=== PATIENT | female | born 1930 | race American Indian/Alaskan Native ===

== ENCOUNTER 2018-09-07 12:40 | Inpatient (IN) | payer MEDICARE ==
[2018-09-07] MEDS ORDERED: PEPCID IV ONE (12:49)
[2018-09-07] MEDS ORDERED: SOLU-Medrol IV ONE (12:49)
[2018-09-07] MEDS ORDERED: BENADRYL IM ONE (12:49)
--- NOTE | 2018-09-07 13:01 | Emergency Department Report ---
HPI - General Chief Complaint: Allergic Reaction Time Seen by Provider: 09/07/18 12:48 - HPI HPI: Room 2 The patient is an 87-year-old female presenting with chief complaint tongue swelling. I spoke with staff at [facility] states the patient last known well time was last night. Sometime during last night and this morning at 08:00 the patient was found to have a swollen tongue. Staff states the patient was found to have an elevated INR yesterday with an INR 5.96. The patient was administered vitamin K subcutaneous and this morning INR was found to be 5.87. Patient denies complaints stating she feels pretty good. Patient denies shortness of breath Location: [See above] Duration: [See above] Quality: [See above] Severity: [See above] Modifying factors: [see above] Context: [see above] Mode of transportation: [not driving] ED Past Medical Hx - Past Medical History Hx Diabetes: Yes Hx Arthritis: Yes Additional medical history: Pharyngeal CA, A. fib, hyperlipidemia, sciatica, hypercholesterolemia - Surgical History Past Surgical History?: No - Family History Family history: no significant - Social History Smoking Status: Unknown if ever smoked - Medications Home Medications: Home Medications Medication Instructions Recorded Confirmed Last Taken Type AtorvaSTATin [Lipitor] 40 mg PO QHS 09/07/18 09/07/18 Unknown History Digoxin [Lanoxin] 0.125 mg PO DAILY 09/07/18 09/07/18 Unknown History Furosemide [Lasix TAB] 40 mg PO QDAY 09/07/18 09/07/18 Unknown History Insulin Aspart [Novolog] 0 unit SQ AC 09/07/18 09/07/18 Unknown History Insulin Glargine,Hum.rec.anlog 10 unit SQ QHS 09/07/18 09/07/18 Unknown History [Basaglar Kwikpen U-100] Metoprolol [Lopressor] 25 mg PO Q6H 09/07/18 09/07/18 Unknown History Sennosides/Docusate Sodium [Senna 1 each PO DAILY 09/07/18 09/07/18 Unknown History Plus Tablet] Warfarin [Coumadin] 5 mg PO QDAY 09/07/18 09/07/18 Unknown History ED Review of Systems ROS: Stated complaint: SOB Other details as noted in HPI Comment: Unobtainable due to pts medical conditions Physical Exam - Physical Exam Physical Exam: GENERAL: The patient is well-developed well-nourished female sitting on stretcher with obvious tongue swelling but not appearing to be in acute distress. [] HEENT: Normocephalic. Atraumatic. Extraocular motions are intact. Tongue swelling, remainder of oropharynx clear NECK: Supple. No stridor CHEST/LUNGS: Clear to auscultation. There is no respiratory distress noted. HEART/CARDIOVASCULAR: Irregularly irregular. There is no tachycardia. There is no gallop rub or murmur. ABDOMEN: Abdomen is soft, nontender. Patient has normal bowel sounds. There is no abdominal distention. SKIN: There is no rash. There is no edema. There is no diaphoresis. NEURO: The patient is awake and alert. The patient is cooperative. The patient has normal speech MUSCULOSKELETAL: There is no evidence of acute injury. ED Medical Decision Making - Lab Data Result diagrams: 09/07/18 14:15 09/07/18 14:15 Laboratory Tests 09/07/18 09/07/18 09/07/18 14:15 14:15 14:15 WBC 10.1 RBC 3.08 L Hgb 9.9 L Hct 29.9 L MCV 97 MCH 32 MCHC 33 RDW 24.9 H Plt Count 362 Lymph % (Auto) 6.6 L [place] % (Auto) 3.8 Eos % (Auto) 0.2 Baso % (Auto) 0.2 Lymph # 0.7 L [place] # 0.4 Eos # 0.0 Baso # 0.0 Seg Neutrophils % 89.2 H Seg Neutrophils # 9.0 H PT 45.8 H INR 5.00 H Sodium 143 Potassium 4.5 Chloride 104.2 Carbon Dioxide 28 Anion Gap 15 BUN 28 H Creatinine 0.5 L Estimated GFR > 60 BUN/Creatinine Ratio 56 Glucose 331 H Calcium 9.3 Total Bilirubin 0.50 AST 30 ALT 25 Alkaline Phosphatase 160 H Total Protein 8.8 H Albumin 2.1 L Albumin/Globulin Ratio 0.3 - EKG Data -: EKG Interpreted by Me Rate: tachycardia - EKG Data Interpretation: nonspecific ST-T wave zack, other (patient fibrillation with a rapid ventricular response of 170 bpm) - Radiology Data Radiology results: image reviewed (lateral soft tissue neck x-ray) interpreted by me: Lateral soft tissue neck x-ray-no prevertebral swelling. - Differential Diagnosis angioedema, allergic reaction, Critical care attestation.: If time is entered above; I have spent that time in minutes in the direct care of this critically ill patient, excluding procedure time. ED Disposition Clinical Impression: Angioedema, Atrial fibrillation with rapid ventricular response, Diarrhea Disposition: OP ADMIT IP TO THIS HOSP Is pt being admited?: Yes Does the pt Need Aspirin: No Condition: Fair Time of Disposition: 15:09 (hospitalist paged (Dr Neely))
[2018-09-07] MEDS ORDERED: CARDIZEM IV ONE (13:47)
[2018-09-07] MEDS ORDERED: CARDIZEM/D5W 100MG/100ML 100 MG/100 ML BAG IV ONE (13:48)
[2018-09-07] MEDS ORDERED: CARDIZEM ONE (13:51)
[2018-09-07 14:35] LABS: Basophils % (Auto) 0.2 % (0.0-1.8); Eosinophils % (Auto) 0.2 % (0.0-4.3); Hematocrit 29.9 % (30.3-42.9); Hemoglobin 9.9 gm/dl (10.1-14.3); Lymphocytes # (Auto) 0.7 K/mm3 (1.2-5.4); Lymphocytes % (Auto) 6.6 % (13.4-35.0); Mean Corpuscular HGB Conc 33 % (30-34); Mean Corpuscular Volume 97 fl (79-97); Monocytes # (Auto) 0.4 K/mm3 (0.0-0.8); Monocytes % (Auto) 3.8 % (0.0-7.3); Platelet Count 362 K/mm3 (140-440); Red Blood Count 3.08 M/mm3 (3.65-5.03); Red Cell Distribution Width 24.9 % (13.2-15.2)
[2018-09-07 14:55] LABS: Alanine Aminotransferase 25 units/L (7-56); Albumin 2.1 g/dL (3.9-5); BUN/Creatinine Ratio 56; Blood Urea Nitrogen 28 mg/dL (7-17); Calcium 9.3 mg/dL (8.4-10.2); Hemolysis Index 13
[2018-09-07 15:15] LABS: Partial Thromboplastin Time 62.1 Sec. (24.2-36.6)
--- NOTE | 2018-09-07 15:45 | History and Physical Report ---
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 Pt is unable to provide detailed histo ry due to tongue swelling. Pt history is provided by family who is at bedside during exam and interview. As per family, the patient was in her usual state of health around 2000 hrs. Pt was found by SNF staff to have a swollen tongue upon waking this morning and was unable to take her daily medication. routine lab showed and elevated INR to 5.87. EMS notified, and patient was transported to [facility]. Pt seen and evaluated in ED and found to have Atrial Fib with RVR, Supratherapeutic INR, and Angioedema. Pt admitted to ICU and initiated on cardizem drip. Pt has positive gag reflex and is able to protect her airway. Pt family at bedside and the care plan is discussed with family. Pt is not in need of intubation at this time. Pt family informed that intubation may become necessary if patient develops greater risk of airway compromise. No prior admission for review. All listed medication reconciled at time of admission. Extra 35 minutes spent discussing care plan with family Past History Past Medical History: atrial fib, diabetes, hypertension, hyperlipidemia, other (Sciatica,Debility) Past Surgical History: Other (Peg placement) Social history: . denies: smoking, alcohol abuse, prescription drug abuse Medications and Allergies Allergies Allergy/AdvReac Type Severity Reaction Status Date / Time olmesartan [From Benicar] Allergy Unknown Verified 09/07/18 14:09 Penicillins Allergy Unknown Verified 09/07/18 12:53 Sulfa (Sulfonamide Allergy Vomiting Verified 09/07/18 12:53 Antibiotics) Home Medications Medication Instructions Recorded Confirmed Last Taken Type AtorvaSTATin [Lipitor] 40 mg PO QHS 09/07/18 09/07/18 Unknown History Digoxin [Lanoxin] 0.125 mg PO DAILY 09/07/18 09/07/18 Unknown History Furosemide [Lasix TAB] 40 mg PO QDAY 09/07/18 09/07/18 Unknown History Insulin Aspart [Novolog] 0 unit SQ AC 09/07/18 09/07/18 Unknown History Insulin Glargine,Hum.rec.anlog 10 unit SQ QHS 09/07/18 09/07/18 Unknown History [Basaglar Kwikpen U-100] Metoprolol [Lopressor] 25 mg PO Q6H 09/07/18 09/07/18 Unknown History Sennosides/Docusate Sodium [Senna 1 each PO DAILY 09/07/18 09/07/18 Unknown History Plus Tablet] Warfarin [Coumadin] 5 mg PO QDAY 09/07/18 09/07/18 Unknown History Active Meds: Active Medications Diltiazem HCl (Cardizem/D5w 100mg/100ml) 100 mg in 100 mls @ 5 mls/hr IV TITR ONE; Protocol Stop: 09/08/18 09:47 Last Admin: 09/07/18 14:57 Dose: 5 mg/hr, 5 mls/hr Documented by: Review of Systems ROS unobtainable: due to mental status Exam - Constitutional Vitals: Temp Pulse Resp BP Pulse Ox 97.7 F 128 H 26 H 169/74 96 09/07/18 12:46 09/07/18 15:01 09/07/18 15:01 09/07/18 15:01 09/07/18 15:01 General appearance: Present: mild distress, cachectic - EENT Eyes: Present: PERRL ENT: hearing intact, clear oral mucosa - Neck Neck: Present: supple, normal ROM - Respiratory Respiratory effort: normal Respiratory: bilateral: CTA - Cardiovascular Heart Sounds: Present: S1 & S2. Absent: rub, click - Extremities Extremities: pulses symmetrical, No edema Peripheral Pulses: within normal limits - Abdominal General gastrointestinal: Present: soft, non-tender, non-distended, normal bowel sounds Female genitourinary: Present: normal - Integumentary Integumentary: Present: clear, warm, dry - Psychiatric Psychiatric: no memory intact - Neurologic Neurologic: CNII-XII intact, moves all extremities, no gait normal Results - Labs CBC & Chem 7: 09/07/18 14:15 09/07/18 14:15 Labs: Abnormal lab results 09/07/18 09/07/18 09/07/18 Range/Units 14:15 14:15 14:15 RBC 3.08 L (3.65-5.03) M/mm3 Hgb 9.9 L (10.1-14.3) gm/dl Hct 29.9 L (30.3-42.9) % RDW 24.9 H (13.2-15.2) % Lymph % (Auto) 6.6 L (13.4-35.0) % Lymph # 0.7 L (1.2-5.4) K/mm3 Seg Neutrophils % 89.2 H (40.0-70.0) % Seg Neutrophils # 9.0 H (1.8-7.7) K/mm3 PT 45.8 H (12.2-14.9) Sec. INR 5.00 H (0.87-1.13) APTT 62.1 H* (24.2-36.6) Sec. BUN 28 H (7-17) mg/dL Creatinine 0.5 L (0.7-1.2) mg/dL Glucose 331 H (65-100) mg/dL Alkaline Phosphatase 160 H (35-129) units/L Total Protein 8.8 H (6.3-8.2) g/dL Albumin 2.1 L (3.9-5) g/dL Assessment and Plan - Patient Problems (1) Atrial fibrillation with rapid ventricular response Current Visit: Yes Status: Acute Plan to address problem: Cardizem drip, titrate to heart rate less than 100, hold therapeutic anticoagulation at this time due to elevated INR. The high probability of a clinically significant, sudden or life threatening deterioration of the [cardiac,respiratory] system(s) required my full and direct attention, intervention and personal management. The aggregate critical care time was [65] minutes. This time is in addition to time spent performing reported procedures but includes the following: [x] Data Review and interpretation [x] Patient assessment and monitoring of vital signs [x] Documentation [x] Medication orders and management (2) Angioedema Current Visit: Yes Status: Acute Qualifiers: Encounter type: initial encounter Qualified Code(s): T78.3XXA - Angioneurotic edema, initial encounter Plan to address problem: IV steroid therapy, aspiration precautions, neuro check, supportive care, if no improvement in symptoms CT Neck in AM. (3) Debility Current Visit: Yes Status: Acute Plan to address problem: Fall precautions, supportive care, (4) Severe malnutrition Current Visit: Yes Status: Acute Plan to address problem: Encourage increased protein intake, PEG tube in place. dietary supplementation (5) Supratherapeutic INR Current Visit: Yes Status: Acute Plan to address problem: Hold coumadin therapy, Pharmacy consulted, (6) Oral cancer Current Visit: Yes Status: Acute Plan to address problem: Oral cancer complicated by dysphagia, Supportive care, Pain control:POA (7) Diabetes Current Visit: Yes Status: Acute Plan to address problem: ADA diet, insulin, accu check, hypoglycemia protocol (8) Osteoarthritis Current Visit: Yes Status: Acute Qualifiers: Laterality: unspecified laterality Plan to address problem: Pain control, supportive care: POA (9) DVT prophylaxis Current Visit: Yes Status: Acute Plan to address problem: SCD to BLE while in bed, INR supratherapeutic at this time.
[2018-09-07] MEDS ORDERED: SODIUM CHLORIDE FLUSH SYRINGE 10 ML IV PRN (15:53)
[2018-09-07] MEDS ORDERED: PROVENTIL IH PRN (15:53)
[2018-09-07] MEDS ORDERED: LOPRESSOR PO SCH (16:00)
[2018-09-07] MEDS ORDERED: TYLENOL ONE (16:45)
--- NOTE | 2018-09-07 16:45 | XRay Report ---
PROCEDURE: XR NECK SOFT TISSUE TECHNIQUE: Soft tissue neck 2 views HISTORY: angioedema COMPARISONS: FINDINGS: Prevertebral soft tissues are unremarkable. No evidence for pharyngeal distention. The epiglottis is not clearly visualized. Upper trachea demonstrates unremarkable appearance. No radiopaque foreign bod y or soft tissue gas appreciated. Multilevel degenerative disc changes noted cervical spine. IMPRESSION: Negative soft tissue neck This document is electronically signed by Contreras Dunne MD., September 07 2018 04:43:47 PM ET
[2018-09-07] MEDS ORDERED: TYLENOL PO ONE (16:48)
[2018-09-07] MEDS: LOPRESSOR FEEDTUBE SCH (17:00)
[2018-09-07] MEDS ORDERED: INSULIN GLARGINE HUM REC ANLOG 10 UNIT SQ SCH (22:00)
[2018-09-07] MEDS: SOLU-Medrol IV SCH (22:01)
[2018-09-07] MEDS: SODIUM CHLORIDE FLUSH SYRINGE 10 ML IV SCH (22:01)
[2018-09-07] MEDS: LANTUS SUB-Q SCH (22:34)
[2018-09-07] MEDS ORDERED: D50W (25GM) Syringe IV PRN (23:21)
[2018-09-08] MEDS: LOPRESSOR FEEDTUBE SCH ×5 (01:43→23:17)
[2018-09-08] MEDS: HumaLOG SUB-Q SCH ×6 (01:43→23:30)
[2018-09-08] MEDS ORDERED: CARDIZEM/D5W 100MG/100ML 100 MG/100 ML BAG IV SCH (06:00)
--- NOTE | 2018-09-08 07:52 | Consultation ---
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 Pt is unable to provide detailed history due to tongue swelling. Pt history is provided by family who is at bedside during exam and interview. As per family, the patient was in her usual state of health around 2000 hrs. Pt was found by SNF staff to have a swollen tongue upon waking this morning and was unable to take her daily medication. routine lab showed and elevated INR to 5.87. EMS notified, and patient was transported to [facility]. Pt seen and evaluated in ED and found to have Atrial Fib with RVR, Supratherapeutic INR, and Angioedema. Pt admitted to ICU and initiated on cardizem drip. Pt has positive gag reflex and is able to protect her airway. She has been admitted to the ICU and I have been consulted fro critical care management. History documented above per ED staff. She was seen and examined. Vitals,labs, medications, chart and imaging reviewed. She is unable to give me a history. She is currently on 5mg of cardizem infusion, with a HR 70s. Past History Past Medical History: atrial fib, diabetes, hypertension, hyperlipidemia, other (Sciatica,Debility) Past Surgical History: Other (Peg placement) Social history: . denies: smoking, alcohol abuse, prescription drug abuse Medications and Allergies Allergies Allergy/AdvReac Type Severity Reaction Status Date / Time olmesartan [From Benicar] Allergy Unknown Verified 09/07/18 14:09 Penicillins Allergy Unknown Verified 09/07/18 12:53 Sulfa (Sulfonamide Allergy Vomiting Verified 09/07/18 12:53 Antibiotics) Home Medications Medication Instructions Recorded Confirmed Last Taken Type AtorvaSTATin [Lipitor] 40 mg PO QHS 09/07/18 09/07/18 Unknown History Digoxin [Lanoxin] 0.125 mg PO DAILY 09/07/18 09/07/18 Unknown History Furosemide [Lasix TAB] 40 mg PO QDAY 09/07/18 09/07/18 Unknown History Insulin Aspart [Novolog] 0 unit SQ AC 09/07/18 09/07/18 Unknown History Insulin Glargine,Hum.rec.anlog 10 unit SQ QHS 09/07/18 09/07/18 Unknown History [Katherine Starr U-100] Metoprolol [Lopressor] 25 mg PO Q6H 09/07/18 09/07/18 Unknown History Sennosides/Docusate Sodium [Senna 1 each PO DAILY 09/07/18 09/07/18 Unknown History Plus Tablet] Warfarin [Coumadin] 5 mg PO QDAY 09/07/18 09/07/18 Unknown History Active Meds: Active Medications Albuterol (Proventil) 2.5 mg IH Q3HRT PRN PRN Reason: Shortness Of Breath Atorvastatin Calcium (Lipitor) 40 mg PO QHS [facility] Last Admin: 09/07/18 22:01 Dose: 40 mg Documented by: Dextrose (D50w (25gm) Syringe) 50 ml IV PRN PRN PRN Reason: Hypoglycemia Digoxin (Lanoxin) 0.125 mg PO DAILY KENNEDI Furosemide (Lasix) 40 mg PO QDAY KENNEDI Diltiazem HCl (Cardizem/D5w 100mg/100ml) 100 mg in 100 mls @ 5 mls/hr IV TITR ONE; Protocol Stop: 09/08/18 09:47 Last Titration: 09/08/18 02:50 Dose: Infused Documented by: Diltiazem HCl (Cardizem/D5w 100mg/100ml) 100 mg in 100 mls @ 0 mls/hr IV DIRECT KENNEDI Insulin Glargine (Lantus) 10 units SUB-Q QHS [facility] Last Admin: 09/07/18 22:34 Dose: 10 units Documented by: Insulin Human Lispro (Humalog) 0 unit SUB-Q Q6HR [facility]; Protocol Last Admin: 09/08/18 01:43 Dose: 9 unit Documented by: Methylprednisolone Sodium Succinate (Solu-Medrol) 40 mg IV Q12HR [facility] Last Admin: 09/07/18 22:01 Dose: 40 mg Documented by: Metoprolol Tartrate (Lopressor) 25 mg FEEDTUBE Q6HR [facility] Last Admin: 09/08/18 05:34 Dose: 25 mg Documented by: Senna/Docusate Sodium (Senokot S) 1 tab PO DAILY [facility] Sodium Chloride (Sodium Chloride Flush Syringe 10 Ml) 10 ml IV BID [facility] Last Admin: 09/07/18 22:01 Dose: 10 ml Documented by: Sodium Chloride (Sodium Chloride Flush Syringe 10 Ml) 10 ml IV PRN PRN PRN Reason: LINE FLUSH Warfarin Sodium (Coumadin) 5 mg PO QDAY KENNEDI; Protocol Review of Systems ROS unobtainable: due to mental status Physical Examination Vital signs: Vital Signs Temp Pulse Resp BP Pulse Ox 97.7 F 76 16 129/62 100 09/07/18 12:46 09/07/18 12:46 09/07/18 12:46 09/07/18 12:46 09/07/18 12:46 General appearance: Present: mild distress, cachectic - EENT Eyes: Present: PERRL - Neck Neck: Present: supple, normal ROM,no JVD, no adenopathy - Respiratory Respiratory effort: normal Respiratory: bilateral: CTA - Cardiovascular Heart Sounds: Present: S1 & S2. Absent: rub, click - Extremities Extremities: pulses symmetrical, No edema Peripheral Pulses: within normal limits - Abdominal General gastrointestinal: Present: soft, non-tender, non-distended, normal bowel sounds Female genitourinary: Present: normal - Integumentary Integumentary: Present: clear, warm, dry - Psychiatric Psychiatric: unable to adequately assess - Neurologic Neurologic: moves all extremities, awake, alert, not obeying commands Results - Laboratory Findings CBC and BMP: 09/07/18 14:15 09/07/18 14:15 PT/INR, D-dimer PT 45.8 Sec. (12.2-14.9) H 09/07/18 14:15 INR 5.00 (0.87-1.13) H 09/07/18 14:15 Abnormal lab findings: Abnormal Labs 09/07/18 09/07/18 09/07/18 14:15 14:15 14:15 RBC 3.08 L Hgb 9.9 L Hct 29.9 L RDW 24.9 H Lymph % (Auto) 6.6 L Lymph # 0.7 L Seg Neutrophils % 89.2 H Seg Neutrophils # 9.0 H PT 45.8 H INR 5.00 H APTT 62.1 H* BUN 28 H Creatinine 0.5 L Glucose 331 H POC Glucose Alkaline Phosphatase 160 H Total Protein 8.8 H Albumin 2.1 L 09/07/18 09/08/1819 22:13 01:36 05:13 RBC Hgb Hct RDW Lymph % (Auto) Lymph # Seg Neutrophils % Seg Neutrophils # PT INR APTT BUN Creatinine Glucose POC Glucose 457 H 494 H 252 H Alkaline Phosphatase Total Protein Albumin Assessment and Plan Atrial fibrillation with rapid ventricular response Angioedema Oropharyngeal dysphagia Moderate protein calorie malnutrition Supratherapeutic INR/Coumadin toxicity Oral cancer Diabetes Osteoarthritis -Close ICU monitoring of airway- -Stop cardizem infusion, resume metoprolol per tube -Aspiration precautions -Steroids, Benadryl, famotidine -Tube feeding -Accucheck with glycemic control -Target blood glucose <180 mg/dL -Monitor for bleeding complications -Daily PT/INR -Mobility, PT/OT to evaluate and treat -Monitor hemodynamics closely -Nutrition consult -Once INR is at 2.0, resume coumadin while monitoring PT/INR CONDITION: CRITICAL PROGNOSIS: GUARDED CODE STATUS: FULL CODE The high probability of a clinically significant, sudden or life threatening deterioration of the [cardiac,respiratory] system(s) required my full and direct attention, intervention and personal management. The aggregate critical care time was [35] minutes. This time is in addition to time spent performing reported procedures but includes the following: [x] Data Review and interpretation [x] Patient assessment and monitoring of vital signs [x] Documentation [x] Medication orders and management
[2018-09-08] MEDS ORDERED: COUMADIN PO SCH (10:00)
[2018-09-08] MEDS: SOLU-Medrol IV SCH ×2 (10:31→22:40)
[2018-09-08] MEDS: LASIX PO SCH (10:31)
[2018-09-08] MEDS: LANOXIN PO SCH (10:34)
[2018-09-08] MEDS: SENOKOT S PO SCH (10:35)
[2018-09-08] MEDS: SODIUM CHLORIDE FLUSH SYRINGE 10 ML IV SCH (10:37)
[2018-09-08] MEDS ORDERED: SODIUM BICARBONATE FEEDTUBE PRN (13:50)
[2018-09-08] MEDS ORDERED: SIMPLE SYRUP FEEDTUBE PRN ×2 (13:50)
[2018-09-08] MEDS ORDERED: PANCREAZE DR 10,500 UNIT FEEDTUBE PRN (13:50)
--- NOTE | 2018-09-08 14:37 | Progress Note ---
Assessment and Plan Assessment and plan: Afib with RVR. Cardizem drip, titrate to heart rate less than 100, hold therapeutic anticoagulation at this time due to elevated INR. Angioedema. IV steroid therapy, aspiration precautions, neuro check, supportive care, if no improvement in symptoms CT Neck in AM. Debility. Fall precautions Protein calorie malnutrition. Encourage increased protein intake, PEG tube in place. dietary supplementation Supratherapeutic INR. Hold coumadin therapy accordingly, Pharmacy consulted DM II. Accuchecks and SSRI. Hx of Oral Cancer. Supportive care History Interval history: 87 YO Female [facility] Facility Resident at [facility] wit h Atrial Fib, HLD, Sciatica, Pharyngeal Cancer, Debility, Severe Malnutrition,DM, OA with tongue swelling. Hospitalist Physical - Constitutional Vitals: Temp Pulse Resp BP Pulse Ox 97.7 F 73 15 119/47 100 09/08/18 12:00 09/08/18 07:00 09/08/18 07:00 09/08/18 07:00 09/08/18 07:00 General appearance: Present: mild distress, cachectic - EENT Eyes: Present: PERRL, EOM intact ENT: hearing intact, clear oral mucosa, dentition normal - Neck Neck: Present: supple, normal ROM - Respiratory Respiratory effort: normal Respiratory: bilateral: CTA - Cardiovascular Rhythm: regular Heart Sounds: Present: S1 & S2. Absent: gallop, rub - Extremities Extremities: no ischemia, No edema, Full ROM - Abdominal General gastrointestinal: soft, non-tender, non-distended, normal bowel sounds - Integumentary Integumentary: Present: clear, warm, dry - Neurologic Neurologic: CNII-XII intact, moves all extremities Results - Labs CBC & Chem 7: 09/07/18 14:15 09/07/18 14:15 Labs: Laboratory Last Values WBC 10.1 K/mm3 (4.5-11.0) 09/07/18 14:15 RBC 3.08 M/mm3 (3.65-5.03) L 09/07/18 14:15 Hgb 9.9 gm/dl (10.1-14.3) L 09/07/18 14:15 Hct 29.9 % (30.3-42.9) L 09/07/18 14:15 MCV 97 fl (79-97) 09/07/18 14:15 MCH 32 pg (28-32) 09/07/18 14:15 MCHC 33 % (30-34) 09/07/18 14:15 RDW 24.9 % (13.2-15.2) H 09/07/18 14:15 Plt Count 362 K/mm3 (140-440) 09/07/18 14:15 Lymph % (Auto) 6.6 % (13.4-35.0) L 09/07/18 14:15 [place] % (Auto) 3.8 % (0.0-7.3) 09/07/18 14:15 Eos % (Auto) 0.2 % (0.0-4.3) 09/07/18 14:15 Baso % (Auto) 0.2 % (0.0-1.8) 09/07/18 14:15 Lymph # 0.7 K/mm3 (1.2-5.4) L 09/07/18 14:15 [place] # 0.4 K/mm3 (0.0-0.8) 09/07/18 14:15 Eos # 0.0 K/mm3 (0.0-0.4) 09/07/18 14:15 Baso # 0.0 K/mm3 (0.0-0.1) 09/07/18 14:15 Seg Neutrophils % 89.2 % (40.0-70.0) H 09/07/18 14:15 Seg Neutrophils # 9.0 K/mm3 (1.8-7.7) H 09/07/18 14:15 PT 45.8 Sec. (12.2-14.9) H 09/07/18 14:15 INR 5.00 (0.87-1.13) H 09/07/18 14:15 APTT 62.1 Sec. (24.2-36.6) H* 09/07/18 14:15 Sodium 143 mmol/L (137-145) 09/07/18 14:15 Potassium 4.5 mmol/L (3.6-5.0) 09/07/18 14:15 Chloride 104.2 mmol/L (98-107) 09/07/18 14:15 Carbon Dioxide 28 mmol/L (22-30) 09/07/18 14:15 15 mmol/L 09/07/18 14:15 BUN 28 mg/dL (7-17) H 09/07/18 14:15 0.5 mg/dL (0.7-1.2) L 09/07/18 14:15 Estimated GFR > 60 ml/min 09/07/18 14:15 56 % 09/07/18 14:15 Glucose 331 mg/dL (65-100) H 09/07/18 14:15 POC Glucose 329 (70-105) H 09/08/18 12:49 Calcium 9.3 mg/dL (8.4-10.2) 09/07/18 14:15 0.50 mg/dL (0.1-1.2) 09/07/18 14:15 AST 30 units/L (5-40) 09/07/18 14:15 ALT 25 units/L (7-56) 09/07/18 14:15 160 units/L (35-129) H 09/07/18 14:15 8.8 g/dL (6.3-8.2) H 09/07/18 14:15 2.1 g/dL (3.9-5) L 09/07/18 14:15 0.3 % 09/07/18 14:15 Active Medications - Current Medications Current Medications: Generic Name Dose Route Start Last Admin Trade Name Freq PRN Reason Stop Dose Admin Albuterol 2.5 mg 09/07/18 15:53 Proventil IH Q3HRT PRN Shortness Of Breath Lipase/Protease/Amylase 1 each 09/08/18 13:[address] 10,500 Unit FEEDTUBE PRN PRN For Clogged Feeding Tube Atorvastatin Calcium 40 mg 09/07/18 22:00 09/07/18 22:01 Lipitor PO 40 mg QHS KENNEDI Administration Dextrose 50 ml 09/07/18 23:21 D50w (25gm) Syringe IV PRN PRN Hypoglycemia Digoxin 0.125 mg 09/08/18 10:00 Lanoxin PO DAILY KENNEDI Furosemide 40 mg 09/08/18 10:00 Lasix PO QDAY [facility] Diltiazem HCl 100 mg in 100 mls @ 0 mls/hr 09/08/18 06:00 Cardizem/D5w 100mg/100ml IV DIRECT [facility] Insulin Glargine 10 units 09/07/18 22:00 09/07/18 22:34 Lantus SUB-Q 10 units QHS KENNEDI Administration Insulin Human Lispro 0 unit 09/08/18 00:00 09/08/18 01:43 Humalog SUB-Q 9 unit Q6HR KENNEDI Administration Protocol Methylprednisolone Sodium Succinate 40 mg 09/07/18 22:00 09/07/18 22:01 Solu-Medrol IV 40 mg Q12HR KENNEDI Administration Metoprolol Tartrate 25 mg 09/07/18 18:00 09/08/18 05:34 Lopressor FEEDTUBE 25 mg Q6HR KENNEDI Administration Senna/Docusate Sodium 1 tab 09/08/18 10:00 Senokot S PO DAILY KENNEDI Simple Syrup 15 ml 09/08/18 13:50 Simple Syrup FEEDTUBE PRN PRN Hypoglycemia Simple Syrup 30 ml 09/08/18 13:50 Simple Syrup FEEDTUBE PRN PRN Hypoglycemia Sodium Bicarbonate 325 mg 09/08/18 13:50 Sodium Bicarbonate FEEDTUBE PRN PRN For Clogged Feeding Tube Sodium Chloride 10 ml 09/07/18 22:00 09/07/18 22:01 Sodium Chloride Flush Syringe 10 Ml IV 10 ml BID KENNEDI Administration Sodium Chloride 10 ml 09/07/18 15:53 Sodium Chloride Flush Syringe 10 Ml IV PRN PRN LINE FLUSH Warfarin Sodium 5 mg 09/09/18 17:00 Coumadin PO DAILY@1700 [facility] Nutrition/Malnutrition Assess - Dietary Evaluation Nutrition/Malnutrition Findings: Nutrition Notes Start: 09/08/18 10:10 Freq: Status: Active Protocol: Document 09/08/18 10:10 JENNIFER (Rec: 09/08/18 10:23 JENNIFER [email or web address]) Nutrition Notes Need for Assessment generated from: MD Order,classified ad taker,Education Initial or Follow up Assessment Current Diagnosis Diabetes,Malnutrition, Hyperlipidemia Other Pertinent Diagnosis afib with RVR, angioedema, Debility, Pharyngeal CA Current Diet NPO Labs/Tests POC Glu: 494, 252 Pertinent Medications Lasix, Solumedrol, Senna, Coumadin Height 5 ft 7 in Weight 52.4 kg [place] Body Weight (kg) 61.36 BMI 18.1 Weight Status Underweight Subjective/Other Information RD consulted for diet education; pt not appropriate for diet education at this time. Pt also screened for chewing difficulty and hx of receiving NTR support (she is from a [place] and has a PEG tube). Pt admitted with a swollen tongue. Per RN, pt will need EN support; will place consult to RD. Burn Absent Trauma Absent #1 Nutrition Diagnosis Malnutrition Etiology chronic illness, advanced age As Evidenced by Signs and Symptoms pt underweight (BMI 18.1) with reduced hand nascar racer strength and relies on EN support to meet nutrient needs Is patient on ventilator? No Is Patient Ambulatory and/or Out of Bed No REE-([facility]-confined to bed) 1203.576 Kcal/Kg value to use for calculation 30 Approximate Energy Requirements Using 1572 kcal/Kg Calculation Used for Recommendations Kcal/kg Additional Notes Pro needs 1.2-2g/k-105g/ day Fluid needs 1ml/kcal Nutrition Intervention Nutrition Support: Glucerna 1.2 at 55ml/hr with 85ml water flush q4h (when TF consult received) Kcal 1,584 Protein (gm) 79 Carbohydrates (gm) 151 Fat (gm) 79 Fluid (mL) 1,063 Fiber (gm) 21 Goal #1 Start EN support to meet nutrient needs Goal #2 Wt maintenance and/or gain Anticipated Discharge Needs: Continue TF Follow-Up By: 09/10/18 Additional Comments F/U: TF start/tolerance
[2018-09-08] MEDS: LANTUS SUB-Q SCH (22:40)
[2018-09-09] MEDS ORDERED: NORCO 5/325 PO PRN (02:43)
[2018-09-09] MEDS ORDERED: TYLENOL PO PRN (02:48)
[2018-09-09 06:24] LABS: INR 6.1 (0.87-1.13)
[2018-09-09] MEDS: HumaLOG SUB-Q SCH ×3 (06:39→17:14)
[2018-09-09] MEDS: LOPRESSOR FEEDTUBE SCH ×3 (06:40→17:13)
--- NOTE | 2018-09-09 09:32 | Progress Note ---
Assessment and Plan Atrial fibrillation with rapid ventricular response Angioedema Oropharyngeal dysphagia Moderate protein calorie malnutrition Supratherapeutic INR/Coumadin toxicity Oral cancer Diabetes Osteoarthritis -Off cardizem infusion, on metoprolol per tube -Aspiration precautions -Steroids, Benadryl, famotidine -Tube feeding -Accucheck with glycemic control -Target blood glucose <180 mg/dL -Monitor for bleeding complications -Daily PT/INR -Mobility, PT/OT to evaluate and treat -Monitor hemodynamics closely -Nutrition consult -Once INR is at 2.0, resume coumadin while monitoring PT/INR CONDITION: FAIR PROGNOSIS: GUARDED CODE STATUS: FULL CODE Ok to transfer to telemetry unit. Discussed with ICU team on IDT rounds Subjective Date of service: 09/09/18 Interval history: Patient is seen today for: Atrial fibrillation with rapid ventricular response; Angioedema; Oropharyngeal dysphagia; Moderate protein calorie malnutrition; Supratherapeutic INR/Coumadin toxicity; Oral cancer; Diabetes; Osteoarthritis Seen and examined at bedside; 24hour events reviewed; vitals, labs, medications, chart reviewed; nursing and respiratory care staff consulted; no adverse overnight events reported to me; resting peacefully in bed; No N/V/F/C; denies acute chest pains; afebrile, off cardizem infusion Objective - Exam Narrative Exam: Not in cardiopulmonary distress. The patient appeared well nourished and normally developed. Vital signs as documented. Head exam is unremarkable. No scleral icterus . Neck is without jugular venous distension, thyromegaly, or carotid bruits. Lungs are clear to auscultation. Cardiac exam reveals irregular rate and Rhythm. First and second heart sounds normal. No murmurs, rubs or gallops. Abdominal exam reveals normal bowel sounds, no masses, no organomegaly and no aortic enlargement. Extremities are non edematous and both femoral and pedal pulses are normal. [employer]: Alert , awake, . Vital Signs - 12hr 09/08/18 09/08/18 09/08/18 21:40 21:50 22:00 Temperature Pulse Rate 110 H 109 H 113 H Pulse Rate [ From Monitor] Respiratory Rate Blood Pressure 137/45 138/55 138/55 O2 Sat by Pulse 97 98 96 Oximetry 09/08/18 09/08/18 09/08/18 22:10 22:20 22:30 Temperature Pulse Rate 117 H 124 H 102 H Pulse Rate [ From Monitor] Respiratory Rate Blood Pressure 138/55 132/68 132/68 O2 Sat by Pulse 100 100 100 Oximetry 09/08/18 09/08/18 09/08/18 22:40 22:47 22:50 Temperature Pulse Rate 130 H 120 H 122 H Pulse Rate [ From Monitor] Respiratory 22 Rate Blood Pressure 132/68 144/59 144/59 O2 Sat by Pulse 100 100 98 Oximetry 09/08/18 09/08/18 09/08/18 23:00 23:06 23:10 Temperature Pulse Rate 103 H 154 H 110 H Pulse Rate [ From Monitor] Respiratory 20 26 H 19 Rate Blood Pressure 142/85 142/85 144/59 O2 Sat by Pulse 100 96 97 Oximetry 09/08/18 09/08/18 09/08/18 23:17 23:20 23:30 Temperature Pulse Rate 109 H 111 H 115 H Pulse Rate [ From Monitor] Respiratory 22 19 Rate Blood Pressure 129/70 129/70 129/70 O2 Sat by Pulse 97 97 Oximetry 09/08/18 09/08/18 09/08/18 23:40 23:45 23:50 Temperature 97.9 F Pulse Rate 109 H 93 H Pulse Rate [ From Monitor] Respiratory 22 14 Rate Blood Pressure 131/54 140/96 O2 Sat by Pulse 95 99 Oximetry 09/08/18 09/09/18 09/09/18 23:51 00:00 00:10 Temperature 313 F H Pulse Rate 92 H 96 H Pulse Rate [ From Monitor] Respiratory 17 14 Rate Blood Pressure 140/96 145/58 O2 Sat by Pulse 98 97 Oximetry 09/09/18 09/09/18 09/09/18 00:20 00:30 00:40 Temperature Pulse Rate 97 H 95 H 119 H Pulse Rate [ From Monitor] Respiratory 14 13 14 Rate Blood Pressure 132/61 130/60 130/60 O2 Sat by Pulse 97 98 100 Oximetry 09/09/18 09/09/18 09/09/18 00:50 01:00 01:10 Temperature Pulse Rate 100 H 114 H 102 H Pulse Rate [ From Monitor] Respiratory 29 H 11 L 15 Rate Blood Pressure 140/70 123/80 123/80 O2 Sat by Pulse 100 100 97 Oximetry 09/09/18 09/09/18 09/09/18 01:20 01:30 01:40 Temperature Pulse Rate 107 H 107 H 96 H Pulse Rate [ From Monitor] Respiratory 26 H 26 H 16 Rate Blood Pressure 131/60 131/60 128/74 O2 Sat by Pulse 99 100 98 Oximetry 09/09/18 09/09/18 09/09/18 01:50 02:00 02:10 Temperature Pulse Rate 102 H 95 H 87 Pulse Rate [ From Monitor] Respiratory 17 19 19 Rate Blood Pressure 120/66 107/82 107/82 O2 Sat by Pulse 98 98 97 Oximetry 09/09/18 09/09/18 09/09/18 02:20 02:30 02:40 Temperature Pulse Rate 106 H 96 H 99 H Pulse Rate [ From Monitor] Respiratory 12 12 16 Rate Blood Pressure 117/75 117/75 111/66 O2 Sat by Pulse 95 98 92 Oximetry 09/09/18 09/09/18 09/09/18 02:50 03:00 03:10 Temperature Pulse Rate 99 H 109 H 101 H Pulse Rate [ From Monitor] Respiratory 20 35 H 24 Rate Blood Pressure 125/58 125/58 127/71 O2 Sat by Pulse 97 98 Oximetry 09/09/18 09/09/18 09/09/18 03:20 03:30 03:37 Temperature 97.8 F Pulse Rate 88 105 H Pulse Rate [ From Monitor] Respiratory 14 16 Rate Blood Pressure 122/67 138/57 O2 Sat by Pulse 96 94 Oximetry 09/09/18 09/09/18 09/09/18 03:40 03:50 04:00 Temperature Pulse Rate 101 H 93 H 91 H Pulse Rate [ From Monitor] Respiratory 14 13 12 Rate Blood Pressure 138/57 125/54 124/54 O2 Sat by Pulse 86 100 100 Oximetry 09/09/18 09/09/18 09/09/18 04:10 04:20 04:30 Temperature Pulse Rate 115 H 103 H 110 H Pulse Rate [ From Monitor] Respiratory 13 12 20 Rate Blood Pressure 124/54 130/46 130/46 O2 Sat by Pulse 100 100 98 Oximetry 09/09/18 09/09/18 09/09/18 04:40 04:50 05:00 Temperature Pulse Rate 99 H 99 H 101 H Pulse Rate [ From Monitor] Respiratory 12 13 13 Rate Blood Pressure 130/46 130/46 123/60 O2 Sat by Pulse 97 94 93 Oximetry 09/09/18 09/09/18 09/09/18 05:10 05:20 05:30 Temperature Pulse Rate 115 H 95 H 108 H Pulse Rate [ From Monitor] Respiratory 19 13 13 Rate Blood Pressure 123/60 136/52 129/56 O2 Sat by Pulse 89 97 97 Oximetry 09/09/18 09/09/18 09/09/18 05:40 05:50 06:00 Temperature Pulse Rate 100 H 104 H Pulse Rate [ From Monitor] Respiratory 12 12 Rate Blood Pressure 129/56 114/58 114/58 O2 Sat by Pulse 97 97 93 Oximetry 09/09/18 09/09/18 09/09/18 06:10 06:20 06:30 Temperature Pulse Rate 116 H 124 H 101 H Pulse Rate [ From Monitor] Respiratory 19 17 20 Rate Blood Pressure 118/95 118/95 118/95 O2 Sat by Pulse 97 100 93 Oximetry 09/09/18 09/09/18 09/09/18 06:40 06:50 07:00 Temperature Pulse Rate 111 H 118 H 121 H Pulse Rate [ From Monitor] Respiratory 19 18 19 Rate Blood Pressure 109/58 83/53 95/60 O2 Sat by Pulse 94 94 97 Oximetry 09/09/18 09/09/18 09/09/18 07:10 07:20 07:30 Temperature Pulse Rate 125 H 116 H 101 H Pulse Rate [ From Monitor] Respiratory 19 15 13 Rate Blood Pressure 142/95 118/49 119/52 O2 Sat by Pulse 95 96 93 Oximetry 09/09/18 09/09/18 09/09/18 07:40 07:50 07:51 Temperature Pulse Rate 115 H 96 H Pulse Rate [ From Monitor] Respiratory 14 14 Rate Blood Pressure 119/52 125/61 O2 Sat by Pulse 95 96 98 Oximetry 09/09/18 09/09/18 09/09/18 08:00 08:10 08:24 Temperature 97.5 F L Pulse Rate 133 H 112 H Pulse Rate [ 133 H From Monitor] Respiratory 13 15 13 Rate Blood Pressure 125/61 125/61 O2 Sat by Pulse 100 99 100 Oximetry CBC and BMP: 09/11/18 04:23 09/11/18 04:23 ABG, PT/INR, D-dimer: PT/INR, D-dimer PT 53.6 Sec. (12.2-14.9) H 09/09/18 04:07 INR 6.10 (0.87-1.13) H* 09/09/18 04:07 Abnormal lab findings: Abnormal Labs 09/07/18 09/07/18 09/07/18 14:15 14:15 14:15 RBC 3.08 L Hgb 9.9 L Hct 29.9 L RDW 24.9 H Lymph % (Auto) 6.6 L Lymph # 0.7 L Seg Neutrophils % 89.2 H Seg Neutrophils # 9.0 H PT 45.8 H INR 5.00 H APTT 62.1 H* BUN 28 H Creatinine 0.5 L Glucose 331 H POC Glucose Alkaline Phosphatase 160 H Total Protein 8.8 H Albumin 2.1 L 09/07/18 09/08/18 09/08/18 22:13 01:36 05:13 RBC Hgb Hct RDW Lymph % (Auto) Lymph # Seg Neutrophils % Seg Neutrophils # PT INR APTT BUN Creatinine Glucose POC Glucose 457 H 494 H 252 H Alkaline Phosphatase Total Protein Albumin 09/08/18 09/08/18 09/08/18 10:06 12:49 13:46 RBC Hgb Hct RDW Lymph % (Auto) Lymph # Seg Neutrophils % Seg Neutrophils # PT INR APTT BUN Creatinine Glucose POC Glucose 334 H 329 H 283 H Alkaline Phosphatase Total Protein Albumin 09/08/18 09/08/18 09/09/18 17:16 23:16 04:07 RBC Hgb Hct RDW Lymph % (Auto) Lymph # Seg Neutrophils % Seg Neutrophils # PT 53.6 H INR 6.10 H* APTT BUN Creatinine Glucose POC Glucose 291 H 313 H Alkaline Phosphatase Total Protein Albumin 09/09/18 05:23 RBC Hgb Hct RDW Lymph % (Auto) Lymph # Seg Neutrophils % Seg Neutrophils # PT INR APTT BUN Creatinine Glucose POC Glucose 282 H Alkaline Phosphatase Total Protein Albumin
[2018-09-09] MEDS: SOLU-Medrol IV SCH ×2 (10:39→22:43)
[2018-09-09] MEDS: LASIX PO SCH (10:39)
[2018-09-09] MEDS: SENOKOT S PO SCH (10:40)
[2018-09-09] MEDS: LANOXIN PO SCH (10:40)
[2018-09-09] MEDS: SODIUM CHLORIDE FLUSH SYRINGE 10 ML IV SCH ×3 (10:41→22:43)
[2018-09-09 12:14] LABS: INR 5.1 (0.87-1.13)
[2018-09-09] MEDS ORDERED: COUMADIN PO SCH (17:00)
--- NOTE | 2018-09-09 18:35 | Progress Note ---
Assessment and Plan Assessment and plan: Afib with RVR. Cardizem drip discontinued. Transfer to floor Angioedema. IV steroid therapy, aspiration precautions, negative neck plain films Debility. Fall precautions Protein calorie malnutrition. Encourage increased protein intake, PEG tube in place. dietary supplementation Supratherapeutic INR. Hold coumadin therapy accordingly, Pharmacy consulted DM II. Accuchecks and SSRI. Hx of Oral Cancer. Supportive care History Interval history: 87 YO Female Long Term Facility Resident at [facility] with Atrial Fib, HLD, Sciatica, Pharyngeal Cancer, Debility, Severe Malnutrition,DM, OA with tongue swelling. Hospitalist Physical - Constitutional Vitals: Temp Pulse Resp BP Pulse Ox 97.9 F 98 H 19 66/21 95 09/09/18 16:00 09/09/18 17:30 09/09/18 17:30 09/09/18 17:30 09/09/18 17:30 General appearance: Present: mild distress, cachectic - EENT Eyes: Present: PERRL, EOM intact ENT: hearing intact, clear oral mucosa, dentition normal - Neck Neck: Present: supple, normal ROM - Respiratory Respiratory effort: normal Respiratory: bilateral: CTA - Cardiovascular Rhythm: regular Heart Sounds: Present: S1 & S2. Absent: gallop, rub - Extremities Extremities: no ischemia, No edema, Full ROM - Abdominal General gastrointestinal: soft, non-tender, non-distended, normal bowel sounds - Integumentary Integumentary: Present: clear, warm, dry - Neurologic Neurologic: CNII-XII intact, moves all extremities Results - Labs CBC & Chem 7: 09/07/18 14:15 09/07/18 14:15 Labs: Laboratory Last Values WBC 10.1 K/mm3 (4.5-11.0) 09/07/18 14:15 RBC 3.08 M/mm3 (3.65-5.03) L 09/07/18 14:15 Hgb 9.9 gm/dl (10.1-14.3) L 09/07/18 14:15 Hct 29.9 % (30.3-42.9) L 09/07/18 14:15 MCV 97 fl (79-97) 09/07/18 14:15 MCH 32 pg (28-32) 09/07/18 14:15 MCHC 33 % (30-34) 09/07/18 14:15 RDW 24.9 % (13.2-15.2) H 09/07/18 14:15 Plt Count 362 K/mm3 (140-440) 09/07/18 14:15 Lymph % (Auto) 6.6 % (13.4-35.0) L 09/07/18 14:15 [place] % (Auto) 3.8 % (0.0-7.3) 09/07/18 14:15 Eos % (Auto) 0.2 % (0.0-4.3) 09/07/18 14:15 Baso % (Auto) 0.2 % (0.0-1.8) 09/07/18 14:15 Lymph # 0.7 K/mm3 (1.2-5.4) L 09/07/18 14:15 [place] # 0.4 K/mm3 (0.0-0.8) 09/07/18 14:15 Eos # 0.0 K/mm3 (0.0-0.4) 09/07/18 14:15 Baso # 0.0 K/mm3 (0.0-0.1) 09/07/18 14:15 Seg Neutrophils % 89.2 % (40.0-70.0) H 09/07/18 14:15 Seg Neutrophils # 9.0 K/mm3 (1.8-7.7) H 09/07/18 14:15 PT 46.5 Sec. (12.2-14.9) H 09/09/18 11:16 INR 5.10 (0.87-1.13) H* 09/09/18 11:16 APTT 62.1 Sec. (24.2-36.6) H* 09/07/18 14:15 Sodium 143 mmol/L (137-145) 09/07/18 14:15 Potassium 4.5 mmol/L (3.6-5.0) 09/07/18 14:15 Chloride 104.2 mmol/L (98-107) 09/07/18 14:15 Carbon Dioxide 28 mmol/L (22-30) 09/07/18 14:15 15 mmol/L 09/07/18 14:15 BUN 28 mg/dL (7-17) H 09/07/18 14:15 0.5 mg/dL (0.7-1.2) L 09/07/18 14:15 Estimated GFR > 60 ml/min 09/07/18 14:15 56 % 09/07/18 14:15 Glucose 331 mg/dL (65-100) H 09/07/18 14:15 POC Glucose 269 (70-105) H 09/09/18 17:18 Calcium 9.3 mg/dL (8.4-10.2) 09/07/18 14:15 0.50 mg/dL (0.1-1.2) 09/07/18 14:15 AST 30 units/L (5-40) 09/07/18 14:15 ALT 25 units/L (7-56) 09/07/18 14:15 160 units/L (35-129) H 09/07/18 14:15 8.8 g/dL (6.3-8.2) H 09/07/18 14:15 2.1 g/dL (3.9-5) L 09/07/18 14:15 0.3 % 09/07/18 14:15 Active Medications - Current Medications Current Medications: Generic Name Dose Route Start Last Admin Trade Name Freq PRN Reason Stop Dose Admin Acetaminophen 650 mg 09/09/18 02:48 Tylenol PO Q4H PRN Pain MILD(1-3)/Fever >100.5/ALEJANDRA Acetaminophen/Hydrocodone Bitart 1 each 09/09/18 02:43 09/09/18 03:29 [place] 5/325 PO 1 each Q4H PRN Administration Pain, Moderate (4-6) Albuterol 2.5 mg 09/07/18 15:53 Proventil IH Q3HRT PRN Shortness Of Breath Lipase/Protease/Amylase 1 each 09/08/18 13:[address] 10,500 Unit FEEDTUBE PRN PRN For Clogged Feeding Tube Atorvastatin Calcium 40 mg 09/07/18 22:00 09/08/18 22:40 Lipitor PO 40 mg QHS KENNEDI Administration Dextrose 50 ml 09/07/18 23:21 D50w (25gm) Syringe IV PRN PRN Hypoglycemia Digoxin 0.125 mg 09/08/18 10:00 09/09/18 10:40 Lanoxin PO 0.125 mg DAILY KENNEDI Administration Furosemide 40 mg 09/08/18 10:00 09/09/18 10:39 Lasix PO 40 mg QDAY KENNEDI Administration Diltiazem HCl 100 mg in 100 mls @ 0 mls/hr 09/08/18 06:00 Cardizem/D5w 100mg/100ml IV DIRECT KENNEDI Insulin Glargine 10 units 09/07/18 22:00 09/08/18 22:40 Lantus SUB-Q 10 units QHS KENNEDI Administration Insulin Human Lispro 0 unit 09/08/18 00:00 09/09/18 17:14 Humalog SUB-Q 4 unit Q6HR KENNEDI Administration Protocol Methylprednisolone Sodium Succinate 40 mg 09/07/18 22:00 09/09/18 10:39 Solu-Medrol IV 40 mg Q12HR KENNEDI Administration Metoprolol Tartrate 25 mg 09/07/18 18:00 09/09/18 17:13 Lopressor FEEDTUBE 25 mg Q6HR KENNEDI Administration Senna/Docusate Sodium 1 tab 09/08/18 10:00 09/09/18 10:40 Senokot S PO 1 tab DAILY KENNEDI Administration Simple Syrup 15 ml 09/08/18 13:50 Simple Syrup FEEDTUBE PRN PRN Hypoglycemia Simple Syrup 30 ml 09/08/18 13:50 Simple Syrup FEEDTUBE PRN PRN Hypoglycemia Sodium Bicarbonate 325 mg 09/08/18 13:50 Sodium Bicarbonate FEEDTUBE PRN PRN For Clogged Feeding Tube Sodium Chloride 10 ml 09/07/18 22:00 09/09/18 10:41 Sodium Chloride Flush Syringe 10 Ml IV 10 ml BID KENNEDI Administration Sodium Chloride 10 ml 09/07/18 15:53 Sodium Chloride Flush Syringe 10 Ml IV PRN PRN LINE FLUSH Nutrition/Malnutrition Assess - Dietary Evaluation Nutrition/Malnutrition Findings: Nutrition Notes Start: 09/08/18 10:10 Freq: Status: Active Protocol: Document 09/08/18 10:10 JENNIFER (Rec: 09/08/18 10:23 JENNIFER [email or web address]) Nutrition Notes Need for Assessment generated from: MD Order,developmental specialist,Education Initial or Follow up Assessment Current Diagnosis Diabetes,Malnutrition, Hyperlipidemia Other Pertinent Diagnosis afib with RVR, angioedema, Debility, Pharyngeal CA Current Diet NPO Labs/Tests POC Glu: 494, 252 Pertinent Medications Lasix, Solumedrol, Senna, Coumadin Height 5 ft 7 in Weight 52.4 kg [place] Body Weight (kg) 61.36 BMI 18.1 Weight Status Underweight Subjective/Other Information RD consulted for diet education; pt not appropriate for diet education at this time. Pt also screened for chewing difficulty and hx of receiving NTR support (she is from a [place] and has a PEG tube). Pt admitted with a swollen tongue. Per RN, pt will need EN support; will place consult to RD. Burn Absent Trauma Absent #1 Nutrition Diagnosis Malnutrition Etiology chronic illness, advanced age As Evidenced by Signs and Symptoms pt underweight (BMI 18.1) with reduced hand grants and contracts assistant strength and relies on EN support to meet nutrient needs Is patient on ventilator? No Is Patient Ambulatory and/or Out of Bed No REE-([facility]-confined to bed) 1203.576 Kcal/Kg value to use for calculation 30 Approximate Energy Requirements Using 1572 kcal/Kg Calculation Used for Recommendations Kcal/kg Additional Notes Pro needs 1.2-2g/k-105g/ day Fluid needs 1ml/kcal Nutrition Intervention Nutrition Support: Glucerna 1.2 at 55ml/hr with 85ml water flush q4h (when TF consult received) Kcal 1,584 Protein (gm) 79 Carbohydrates (gm) 151 Fat (gm) 79 Fluid (mL) 1,063 Fiber (gm) 21 Goal #1 Start EN support to meet nutrient needs Goal #2 Wt maintenance and/or gain Anticipated Discharge Needs: Continue TF Follow-Up By: 09/10/18 Additional Comments F/U: TF start/tolerance
[2018-09-09] MEDS: LANTUS SUB-Q SCH (22:43)
[2018-09-10] MEDS: LOPRESSOR FEEDTUBE SCH ×4 (02:03→20:16)
[2018-09-10] MEDS: HumaLOG SUB-Q SCH ×6 (02:04→22:17)
[2018-09-10] MEDS: BENADRYL IV PRN (03:20)
--- NOTE | 2018-09-10 09:19 | Progress Note ---
Assessment and Plan Atrial fibrillation with rapid ventricular response Angioedema Oropharyngeal dysphagia Moderate protein calorie malnutrition Supratherapeutic INR/Coumadin toxicity Oral cancer Diabetes Osteoarthritis - continue to adjust cardizem and other anti-arrythmic's per cardiology recs - slowly taper off benadryl, pepcid & solumedrol - advance oral diet per ST - continue accuchecks with glycemic control per SSI for target blood glucose < 180 mg/dL - adjust coumadin re: supratherapeutic INR - Mobility, PT/OT to evaluate and treat - Monitor hemodynamics closely - Nutrition consult - fall precautions - continue other care per attending / other consultants .... re-evaluate in am & prn Subjective Date of service: 09/10/18 Principal diagnosis: A-Fib with RVR; Angioedema; Supratherapeutic INR/Coumadin toxicity Interval history: Patient is seen today for: Atrial fibrillation with rapid ventricular response; Angioedema; Oropharyngeal dysphagia; Moderate protein calorie malnutrition; Supratherapeutic INR/Coumadin toxicity; Oral cancer; Diabetes; Osteoarthritis Seen and examined at bedside; 24hour events reviewed; nursing and respiratory care staff consulted; no adverse overnight events reported to me; resting peacefully in bed; No N/V/F/C; denies acute chest pains; afebrile Objective Vital Signs - 12hr 09/09/18 09/09/18 09/10/18 22:50 23:07 00:15 Temperature 98.0 F Pulse Rate 107 H 54 L Pulse Rate [ 111 H Apical] Pulse Rate [ 111 H From Monitor] Respiratory 18 18 Rate Blood Pressure 162/66 O2 Sat by Pulse 95 97 Oximetry 09/10/18 09/10/18 09/10/18 02:03 03:56 06:00 Temperature 98.0 F Pulse Rate 122 H 83 83 Pulse Rate [ Apical] Pulse Rate [ From Monitor] Respiratory 18 Rate Blood Pressure 162/66 157/70 157/70 O2 Sat by Pulse 99 Oximetry 09/10/18 09/10/18 07:39 07:55 Temperature 98.7 F Pulse Rate 46 L Pulse Rate [ Apical] Pulse Rate [ From Monitor] Respiratory 18 Rate Blood Pressure 156/78 O2 Sat by Pulse 97 99 Oximetry Constitutional: alert, appears uncomfortable, other (elderly looking AAF, normocephalic and atraumatic with mildly increased resp effort at rest) Eyes: non-icteric ENT: oropharynx moist, other (mallampati 2) Neck: supple, no lymphadenopathy, no JVD Effort: mildly labored Ascultation: Bilateral: diminished breath sounds, rhonchi Percussion: Bilateral: not dull Cardiovascular: regular rate and rhythm, murmur noted (DARON) Gastrointestinal: normoactive bowel sounds, soft, non-tender, non-distended Integumentary: other (poor turgor) Extremities: no cyanosis, no edema, pulses normal, no ischemia or petechiae Neurologic: non-focal exam (grossly), pupils equal and round, CN II-XII normal Psychiatric: anxious CBC and BMP: 09/11/18 04:23 09/11/18 04:23 ABG, PT/INR, D-dimer: PT/INR, D-dimer PT 46.5 Sec. (12.2-14.9) H 09/09/18 11:16 INR 5.10 (0.87-1.13) H* 09/09/18 11:16 Abnormal lab findings: Abnormal Labs 09/07/18 09/07/18 09/07/18 14:15 14:15 14:15 RBC 3.08 L Hgb 9.9 L Hct 29.9 L RDW 24.9 H Lymph % (Auto) 6.6 L Lymph # 0.7 L Seg Neutrophils % 89.2 H Seg Neutrophils # 9.0 H PT 45.8 H INR 5.00 H APTT 62.1 H* BUN 28 H Creatinine 0.5 L Glucose 331 H POC Glucose Alkaline Phosphatase 160 H Total Protein 8.8 H Albumin 2.1 L 09/07/18 09/08/18 09/08/18 22:13 01:36 05:13 RBC Hgb Hct RDW Lymph % (Auto) Lymph # Seg Neutrophils % Seg Neutrophils # PT INR APTT BUN Creatinine Glucose POC Glucose 457 H 494 H 252 H Alkaline Phosphatase Total Protein Albumin 09/08/18 09/08/18 09/08/18 10:06 12:49 13:46 RBC Hgb Hct RDW Lymph % (Auto) Lymph # Seg Neutrophils % Seg Neutrophils # PT INR APTT BUN Creatinine Glucose POC Glucose 334 H 329 H 283 H Alkaline Phosphatase Total Protein Albumin 09/08/18 09/08/18 09/09/18 17:16 23:16 04:07 RBC Hgb Hct RDW Lymph % (Auto) Lymph # Seg Neutrophils % Seg Neutrophils # PT 53.6 H INR 6.10 H* APTT BUN Creatinine Glucose POC Glucose 291 H 313 H Alkaline Phosphatase Total Protein Albumin 09/09/18 09/09/18 09/09/18 05:23 11:16 11:33 RBC Hgb Hct RDW Lymph % (Auto) Lymph # Seg Neutrophils % Seg Neutrophils # PT 46.5 H INR 5.10 H* APTT BUN Creatinine Glucose POC Glucose 282 H 298 H Alkaline Phosphatase Total Protein Albumin 09/09/18 09/09/18 09/10/18 17:18 22:23 01:59 RBC Hgb Hct RDW Lymph % (Auto) Lymph # Seg Neutrophils % Seg Neutrophils # PT INR APTT BUN Creatinine Glucose POC Glucose 269 H 299 H 374 H Alkaline Phosphatase Total Protein Albumin 09/10/18 06:01 RBC Hgb Hct RDW Lymph % (Auto) Lymph # Seg Neutrophils % Seg Neutrophils # PT INR APTT BUN Creatinine Glucose POC Glucose 309 H Alkaline Phosphatase Total Protein Albumin Chest x-ray: image reviewed Allied health notes reviewed: nursing
[2018-09-10] MEDS: SENOKOT S PO SCH (10:03)
[2018-09-10] MEDS: LANOXIN PO SCH (10:03)
[2018-09-10] MEDS: LASIX PO SCH (10:03)
[2018-09-10] MEDS: SOLU-Medrol IV SCH ×2 (10:03→22:26)
[2018-09-10 14:20] LABS: INR 4.13 (0.87-1.13)
--- NOTE | 2018-09-10 15:38 | Progress Note ---
Assessment and Plan Assessment and plan: 87 YO Female [facility] Facility Resident at [facility] with Atrial Fib, HLD, Sciatica, Pharyngeal Cancer, Debility, Severe Malnutrition,DM, OA with tongue swelling. Afib with RVR; controlled on Cardizem and metoprolol. Angioedema. IV steroid therapy, aspiration precautions, negative neck plain films Debility. Fall precautions Protein calorie malnutrition. Encourage increased protein intake, PEG tube in place. dietary supplementation Supratherapeutic INR. Hold coumadin therapy accordingly, Pharmacy consulted. We'll follow INR DM II. Accuchecks and SSRI. Hx of Oral Cancer. Supportive care History Interval history: patient was seen and evaluated this morning, patient's blood sugar was high and insulin was adjusted. Hospitalist Physical - Physical exam Narrative exam: Not in cardiopulmonary distress. The patient appeared well nourished and normally developed. Vital signs as documented. Head exam is unremarkable. No scleral icterus . Neck is without jugular venous distension, thyromegaly, or carotid bruits. Lungs are clear to auscultation. Cardiac exam reveals regular rate and Rhythm. First and second heart sounds normal. No murmurs, rubs or gallops. Abdominal exam reveals normal bowel sounds, no masses, no organomegaly and no aortic enlargement. Extremities are nonedematous and both femoral and pedal pulses are normal. DENTAL LABORATORY SUPERVISOR: Alert and oriented 3. No focal weakness. - Constitutional Vitals: Temp Pulse Resp BP Pulse Ox 98.7 F 46 L 18 156/78 99 09/10/18 07:39 09/10/18 07:39 09/10/18 07:39 09/10/18 07:39 09/10/18 07:55 General appearance: Present: mild distress, cachectic Results - Labs CBC & Chem 7: 09/07/18 14:15 09/07/18 14:15 Labs: Laboratory Last Values WBC 10.1 K/mm3 (4.5-11.0) 09/07/18 14:15 RBC 3.08 M/mm3 (3.65-5.03) L 09/07/18 14:15 Hgb 9.9 gm/dl (10.1-14.3) L 09/07/18 14:15 Hct 29.9 % (30.3-42.9) L 09/07/18 14:15 MCV 97 fl (79-97) 09/07/18 14:15 MCH 32 pg (28-32) 09/07/18 14:15 MCHC 33 % (30-34) 09/07/18 14:15 RDW 24.9 % (13.2-15.2) H 09/07/18 14:15 Plt Count 362 K/mm3 (140-440) 09/07/18 14:15 Lymph % (Auto) 6.6 % (13.4-35.0) L 09/07/18 14:15 [place] % (Auto) 3.8 % (0.0-7.3) 09/07/18 14:15 Eos % (Auto) 0.2 % (0.0-4.3) 09/07/18 14:15 Baso % (Auto) 0.2 % (0.0-1.8) 09/07/18 14:15 Lymph # 0.7 K/mm3 (1.2-5.4) L 09/07/18 14:15 [place] # 0.4 K/mm3 (0.0-0.8) 09/07/18 14:15 Eos # 0.0 K/mm3 (0.0-0.4) 09/07/18 14:15 Baso # 0.0 K/mm3 (0.0-0.1) 09/07/18 14:15 Seg Neutrophils % 89.2 % (40.0-70.0) H 09/07/18 14:15 Seg Neutrophils # 9.0 K/mm3 (1.8-7.7) H 09/07/18 14:15 PT 39.4 Sec. (12.2-14.9) H 09/10/18 14:01 INR 4.13 (0.87-1.13) H 09/10/18 14:01 APTT 62.1 Sec. (24.2-36.6) H* 09/07/18 14:15 Sodium 143 mmol/L (137-145) 09/07/18 14:15 Potassium 4.5 mmol/L (3.6-5.0) 09/07/18 14:15 Chloride 104.2 mmol/L (98-107) 09/07/18 14:15 Carbon Dioxide 28 mmol/L (22-30) 09/07/18 14:15 15 mmol/L 09/07/18 14:15 BUN 28 mg/dL (7-17) H 09/07/18 14:15 0.5 mg/dL (0.7-1.2) L 09/07/18 14:15 Estimated GFR > 60 ml/min 09/07/18 14:15 56 % 09/07/18 14:15 Glucose 331 mg/dL (65-100) H 09/07/18 14:15 POC Glucose 137 (70-105) H 09/10/18 11:58 Calcium 9.3 mg/dL (8.4-10.2) 09/07/18 14:15 0.50 mg/dL (0.1-1.2) 09/07/18 14:15 AST 30 units/L (5-40) 09/07/18 14:15 ALT 25 units/L (7-56) 09/07/18 14:15 160 units/L (35-129) H 09/07/18 14:15 8.8 g/dL (6.3-8.2) H 09/07/18 14:15 2.1 g/dL (3.9-5) L 09/07/18 14:15 0.3 % 09/07/18 14:15 Active Medications - Current Medications Current Medications: Generic Name Dose Route Start Last Admin Trade Name Freq PRN Reason Stop Dose Admin Acetaminophen 650 mg 09/09/18 02:48 Tylenol PO Q4H PRN Pain MILD(1-3)/Fever >100.5/ALEJANDRA Acetaminophen/Hydrocodone Bitart 1 each 09/09/18 02:43 09/09/18 03:29 [place] 5/325 PO 1 each Q4H PRN Administration Pain, Moderate (4-6) Albuterol 2.5 mg 09/07/18 15:53 Proventil IH Q3HRT PRN Shortness Of Breath Lipase/Protease/Amylase 1 each 09/08/18 13:[address] 10,500 Unit FEEDTUBE PRN PRN For Clogged Feeding Tube Atorvastatin Calcium 40 mg 09/07/18 22:00 09/09/18 22:43 Lipitor PO 40 mg QHS KENNEDI Administration Dextrose 50 ml 09/07/18 23:21 D50w (25gm) Syringe IV PRN PRN Hypoglycemia Digoxin 0.125 mg 09/08/18 10:00 09/10/18 10:03 Lanoxin PO 0.125 mg DAILY KENNEDI Administration Diphenhydramine HCl 25 mg 09/10/18 03:05 09/10/18 03:20 Benadryl IV 25 mg Q8H PRN Administration Itching Furosemide 40 mg 09/08/18 10:00 09/10/18 10:03 Lasix PO 40 mg QDAY KENNEDI Administration Diltiazem HCl 100 mg in 100 mls @ 0 mls/hr 09/08/18 06:00 Cardizem/D5w 100mg/100ml IV DIRECT KENNEDI Insulin Glargine 10 units 09/07/18 22:00 09/09/18 22:43 Lantus SUB-Q 10 units QHS KENNEDI Administration Insulin Human Lispro 0 unit 09/08/18 00:00 09/10/18 06:00 Humalog SUB-Q 6 unit Q6HR KENNEDI Administration Protocol Insulin Human Lispro 10 unit 09/10/18 11:30 Humalog SUB-Q AC KENNEDI Methylprednisolone Sodium Succinate 40 mg 09/07/18 22:00 09/10/18 10:03 Solu-Medrol IV 40 mg Q12HR KENNEDI Administration Metoprolol Tartrate 25 mg 09/07/18 18:00 09/10/18 06:00 Lopressor FEEDTUBE 25 mg Q6HR KENNEDI Administration Senna/Docusate Sodium 1 tab 09/08/18 10:00 09/10/18 10:03 Senokot S PO 1 tab DAILY KENNEDI Administration Simple Syrup 15 ml 09/08/18 13:50 Simple Syrup FEEDTUBE PRN PRN Hypoglycemia Simple Syrup 30 ml 09/08/18 13:50 Simple Syrup FEEDTUBE PRN PRN Hypoglycemia Sodium Bicarbonate 325 mg 09/08/18 13:50 Sodium Bicarbonate FEEDTUBE PRN PRN For Clogged Feeding Tube Sodium Chloride 10 ml 09/07/18 22:00 09/09/18 22:43 Sodium Chloride Flush Syringe 10 Ml IV 10 ml BID KENNEDI Administration Sodium Chloride 10 ml 09/07/18 15:53 Sodium Chloride Flush Syringe 10 Ml IV PRN PRN LINE FLUSH Nutrition/Malnutrition Assess - Dietary Evaluation Nutrition/Malnutrition Findings: Nutrition Notes Start: 09/08/18 10:10 Freq: Status: Active Protocol: Document 09/08/18 10:10 JENNIFER (Rec: 09/08/18 10:23 JENNIFER [id number]) Nutrition Notes Need for Assessment generated from: MD Order,advertising intern,Education Initial or Follow up Assessment Current Diagnosis Diabetes,Malnutrition, Hyperlipidemia Other Pertinent Diagnosis afib with RVR, angioedema, Debility, Pharyngeal CA Current Diet NPO Labs/Tests POC Glu: 494, 252 Pertinent Medications Lasix, Solumedrol, Senna, Coumadin Height 5 ft 7 in Weight 52.4 kg [place] Body Weight (kg) 61.36 BMI 18.1 Weight Status Underweight Subjective/Other Information RD consulted for diet education; pt not appropriate for diet education at this time. Pt also screened for chewing difficulty and hx of receiving NTR support (she is from a [facility] and has a PEG tube). Pt admitted with a swollen tongue. Per RN, pt will need EN support; will place consult to RD. 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 No Is Patient Ambulatory and/or Out of Bed No REE-([facility]-confined to bed) 1203.576 Kcal/Kg value to use for calculation 30 Approximate Energy Requirements Using 1572 kcal/Kg Calculation Used for Recommendations Kcal/kg Additional Notes Pro needs 1.2-2g/k-105g/ day Fluid needs 1ml/kcal Nutrition Intervention Nutrition Support: Glucerna 1.2 at 55ml/hr with 85ml water flush q4h (when TF consult received) Kcal 1,584 Protein (gm) 79 Carbohydrates (gm) 151 Fat (gm) 79 Fluid (mL) 1,063 Fiber (gm) 21 Goal #1 Start EN support to meet nutrient needs Goal #2 Wt maintenance and/or gain Anticipated Discharge Needs: Continue TF Follow-Up By: 09/10/18 Additional Comments F/U: TF start/tolerance
[2018-09-10] MEDS: SODIUM CHLORIDE FLUSH SYRINGE 10 ML IV SCH ×2 (20:10→22:27)
[2018-09-10] MEDS: LANTUS SUB-Q SCH (22:27)
[2018-09-11] MEDS: HumaLOG SUB-Q SCH ×5 (01:08→12:20)
[2018-09-11] MEDS: LOPRESSOR FEEDTUBE SCH ×4 (01:08→17:49)
[2018-09-11] MEDS: BENADRYL IV PRN (02:16)
[2018-09-11 06:08] LABS: Mean Corpuscular HGB Conc 29 % (30-34); Mean Corpuscular Volume 108 fl (79-97); Platelet Count 312 K/mm3 (140-440); Red Blood Count 3.65 M/mm3 (3.65-5.03)
[2018-09-11 06:09] LABS: BUN/Creatinine Ratio 72; Blood Urea Nitrogen 43 mg/dL (7-17); Hematocrit 39.5 % (30.3-42.9); Hemoglobin 11.5 gm/dl (10.1-14.3); Hemolysis Index 66; Red Cell Distribution Width 25.7 % (13.2-15.2)
[2018-09-11 06:45] LABS: Basophils % (Manual) 0 % (0.0-1.8); Eosinophils % (Manual) 0 % (0.0-4.3); Target Cells 1+; Total Cells Counted 100
[2018-09-11 06:46] LABS: Anisocytosis 1+; Platelet Estimate Consistent w Auto
[2018-09-11 09:46] LABS: INR 2.68 (0.87-1.13)
[2018-09-11] MEDS ORDERED: KIONEX PO NR (10:28)
[2018-09-11] MEDS: LASIX PO SCH (10:30)
[2018-09-11] MEDS: SOLU-Medrol IV SCH (10:30)
[2018-09-11] MEDS: SENOKOT S PO SCH (10:30)
[2018-09-11] MEDS: LANOXIN PO SCH (10:30)
[2018-09-11] MEDS: SODIUM CHLORIDE FLUSH SYRINGE 10 ML IV SCH (10:31)
--- NOTE | 2018-09-11 10:37 | Discharge Summary ---
Providers - Providers Date of Admission: 09/07/18 15:53 Date of discharge: 09/11/18 Attending physician: BRANDEN ESPINOZA MD 09/07/18 21:17 Consult to Physician [CONS] Routine Comment: VIOLA Santillan spoke with Dr. Veliz @ [phone] Consulting Provider: LEFTY VELIZ Physician Instructions: Reason For Exam: CCU 09/07/18 23:22 Consult to Dietitian/Nutrition [CONS] Routine Physician Instructions: Reason For Exam: Reason for Consult: Diet education Primary care physician: JACQUARD LOOM WEAVER Hospitalization Reason for admission: Angioedema, warfari toxicity Condition: Fair Hospital course: 87 YO Female [facility] Facility Resident at [facility] with Atrial Fib, HLD, Sciatica, Pharyngeal Cancer, Debility, Severe Malnutrition,DM, OA with tongue swelling. Pt is unable to provide detailed history due to tongue swelling. Pt history is provided by family who is at bedside during exam and interview. As per family, the patient was in her usual state of health around 2000 hrs. Pt was found by SNF staff to have a swollen tongue upon waking this morning and was unable to take her daily medication. routine lab showed and elevated INR to 5.87. EMS notified, and patient was transported to [facility]. Pt seen and evaluated in ED and found to have Atrial Fib with RVR, Supratherapeutic INR, and Angioedema. Pt admitted to ICU and initiated on cardizem drip. Pt has positive gag reflex and is able to protect her airway. Pt family at bedside and the care plan is discussed with family. Pt is not in need of intubation at this time. Pt family informed that intubation may become necessary if patient develops greater risk of airway compromise. Afib with RVR; controlled on Cardizem and metoprolol. INR was high during her admission and was normal at the time of discharge and was decreased from 5mg to 3mg daily, follow INR with PCP. Angioedema; treated withIV steroid therapy, aspiration precautions, negative neck plain films. patient's swelling resolved and no respiratory compromise. discharged with po predispose and Benadryl. Debility. Fall precautions Protein calorie malnutrition; continue Supratherapeutic INR; resolved. DM II; continue home medications. Hx of Oral Cancer. Supportive care. Patient was at baseline at the time of discharge. patient discharged back to SNF. Disposition: [id number]/[id number] SNF W [facility]IAGO [facility]LAN - Discharge Diagnoses (1) Angioedema Status: Acute Qualifiers: Encounter type: initial encounter Qualified Code(s): T78.3XXA - Angioneurotic edema, initial encounter (2) Atrial fibrillation with rapid ventricular response Status: Chronic (3) Debility Status: Acute (4) Diabetes Status: Acute Qualifiers: Diabetes mellitus type: type 2 (5) Oral cancer Status: Chronic (6) Severe malnutrition Status: Chronic (7) Supratherapeutic INR Status: Acute Core Measure Documentation - Palliative Care Palliative Care/ Comfort Measures: Not Applicable - Core Measures Any of the following diagnoses?: none Exam - Physical Exam Narrative exam: Not in cardiopulmonary distress. The patient appeared well nourished and normally developed. Vital signs as documented. Head exam is unremarkable. No scleral icterus . Neck is without jugular venous distension, thyromegaly, or carotid bruits. Lungs are clear to auscultation. Cardiac exam reveals regular rate and Rhythm. First and second heart sounds normal. No murmurs, rubs or gallops. Abdominal exam reveals normal bowel sounds, no masses, no organomegaly and no aortic enlargement. Extremities are nonedematous and both femoral and pedal pulses are normal. ENVIRONMENTAL COMPLIANCE OFFICER: Alert . - Constitutional Vitals: Temp Pulse Resp BP Pulse Ox 97.4 F L 128 H 18 152/92 97 09/11/18 03:56 09/11/18 05:12 09/11/18 03:56 09/11/18 05:12 09/11/18 03:56 Plan Activity: advance as tolerated Weight Bearing Status: Weight Bear as Tolerated Diet: other (tube feeding) Follow up with: PRIMARY CAREMD [Primary Care Provider] - 3-5 Days Forms: Warfarin Discharge Instruction Prescriptions: diphenhydrAMINE [Benadryl CAP] 25 mg PO Q8HR PRN #15 capsule PRN Reason: Allergy Symptoms Prednisone [predniSONE 10 mg (6-Day Pack, 21 Tabs)] 10 mg PO .TAPER #1 tab.[email or web address]
--- NOTE | 2018-09-11 10:49 | Progress Note ---
Assessment and Plan Atrial fibrillation with rapid ventricular response Angioedema Oropharyngeal dysphagia Moderate protein calorie malnutrition Supratherapeutic INR/Coumadin toxicity Oral cancer Diabetes Osteoarthritis - continue to adjust cardizem and other anti-arrythmic's per cardiology recs - taper off benadryl, pepcid & solumedrol - advance oral diet per ST - continue accuchecks with glycemic control per SSI for target blood glucose < 180 mg/dL - adjust coumadin re: supratherapeutic INR - Mobility, PT/OT to evaluate and treat - Monitor hemodynamics closely - Nutrition consult - fall precautions - continue other care per attending / other consultants .... re-evaluate in am & prn Subjective Date of service: 09/11/18 Principal diagnosis: A-Fib with RVR; Angioedema; Supratherapeutic INR/Coumadin toxicity Interval history: Patient is seen today for: Atrial fibrillation with rapid ventricular response; Angioedema; Oropharyngeal dysphagia; Moderate protein calorie malnutrition; Supratherapeutic INR/Coumadin toxicity; Oral cancer; Diabetes; Osteoarthritis Seen and examined at bedside; 24hour events reviewed; nursing and respiratory care staff consulted; no adverse overnight events reported to me; resting peacefully in bed; feels better; no chest pain and not SOB Objective Vital Signs - 12hr 09/10/18 09/11/18 09/11/18 23:10 01:08 03:56 Temperature 98.5 F 97.4 F L Pulse Rate 62 115 H 74 Respiratory 18 18 Rate Blood Pressure 136/78 151/77 O2 Sat by Pulse 78 L 97 Oximetry 09/11/18 09/11/18 05:12 10:30 Temperature Pulse Rate 128 H 109 H Respiratory Rate Blood Pressure 152/92 O2 Sat by Pulse Oximetry Constitutional: alert, appears uncomfortable, other (elderly looking AAF, normocephalic and atraumatic with mildly increased resp effort at rest) Eyes: non-icteric ENT: oropharynx moist, other (mallampati 2) Neck: supple, no lymphadenopathy, no JVD Effort: mildly labored Ascultation: Bilateral: diminished breath sounds, rhonchi Percussion: Bilateral: not dull Cardiovascular: regular rate and rhythm, murmur noted (DARON) Gastrointestinal: normoactive bowel sounds, soft, non-tender, non-distended Integumentary: other (poor turgor) Extremities: no cyanosis, no edema, pulses normal, no ischemia or petechiae Neurologic: non-focal exam (grossly), pupils equal and round, CN II-XII normal Psychiatric: anxious CBC and BMP: 09/11/18 04:23 09/11/18 04:23 ABG, PT/INR, D-dimer: PT/INR, D-dimer PT 28.0 Sec. (12.2-14.9) H 09/11/18 09:22 INR 2.68 (0.87-1.13) H 09/11/18 09:22 Abnormal lab findings: Abnormal Labs 09/07/18 09/07/18 09/07/18 14:15 14:15 14:15 WBC RBC 3.08 L Hgb 9.9 L Hct 29.9 L MCV MCHC RDW 24.9 H Lymph % (Auto) 6.6 L Lymph # 0.7 L Seg Neutrophils % 89.2 H Seg Neuts % (Manual) Lymphocytes % (Manual) Nucleated RBC % Seg Neutrophils # 9.0 H Seg Neutrophils # Man Lymphocytes # (Manual) PT 45.8 H INR 5.00 H APTT 62.1 H* Potassium Chloride BUN 28 H Creatinine 0.5 L Glucose 331 H POC Glucose Alkaline Phosphatase 160 H Total Protein 8.8 H Albumin 2.1 L 09/07/18 09/08/18 09/08/18 22:13 01:36 05:13 WBC RBC Hgb Hct MCV MCHC RDW Lymph % (Auto) Lymph # Seg Neutrophils % Seg Neuts % (Manual) Lymphocytes % (Manual) Nucleated RBC % Seg Neutrophils # Seg Neutrophils # Man Lymphocytes # (Manual) PT INR APTT Potassium Chloride BUN Creatinine Glucose POC Glucose 457 H 494 H 252 H Alkaline Phosphatase Total Protein Albumin 09/08/18 09/08/18 09/08/18 10:06 12:49 13:46 WBC RBC Hgb Hct MCV MCHC RDW Lymph % (Auto) Lymph # Seg Neutrophils % Seg Neuts % (Manual) Lymphocytes % (Manual) Nucleated RBC % Seg Neutrophils # Seg Neutrophils # Man Lymphocytes # (Manual) PT INR APTT Potassium Chloride BUN Creatinine Glucose POC Glucose 334 H 329 H 283 H Alkaline Phosphatase Total Protein Albumin 09/08/18 09/08/18 09/09/18 17:16 23:16 04:07 WBC RBC Hgb Hct MCV MCHC RDW Lymph % (Auto) Lymph # Seg Neutrophils % Seg Neuts % (Manual) Lymphocytes % (Manual) Nucleated RBC % Seg Neutrophils # Seg Neutrophils # Man Lymphocytes # (Manual) PT 53.6 H INR 6.10 H* APTT Potassium Chloride BUN Creatinine Glucose POC Glucose 291 H 313 H Alkaline Phosphatase Total Protein Albumin 09/09/18 09/09/18 09/09/18 05:23 11:16 11:33 WBC RBC Hgb Hct MCV MCHC RDW Lymph % (Auto) Lymph # Seg Neutrophils % Seg Neuts % (Manual) Lymphocytes % (Manual) Nucleated RBC % Seg Neutrophils # Seg Neutrophils # Man Lymphocytes # (Manual) PT 46.5 H INR 5.10 H* APTT Potassium Chloride BUN Creatinine Glucose POC Glucose 282 H 298 H Alkaline Phosphatase Total Protein Albumin 09/09/18 09/09/18 09/10/18 17:18 22:23 01:59 WBC RBC Hgb Hct MCV MCHC RDW Lymph % (Auto) Lymph # Seg Neutrophils % Seg Neuts % (Manual) Lymphocytes % (Manual) Nucleated RBC % Seg Neutrophils # Seg Neutrophils # Man Lymphocytes # (Manual) PT INR APTT Potassium Chloride BUN Creatinine Glucose POC Glucose 269 H 299 H 374 H Alkaline Phosphatase Total Protein Albumin 09/10/18 09/10/18 09/10/18 06:01 11:58 14:01 WBC RBC Hgb Hct MCV MCHC RDW Lymph % (Auto) Lymph # Seg Neutrophils % Seg Neuts % (Manual) Lymphocytes % (Manual) Nucleated RBC % Seg Neutrophils # Seg Neutrophils # Man Lymphocytes # (Manual) PT 39.4 H INR 4.13 H APTT Potassium Chloride BUN Creatinine Glucose POC Glucose 309 H 137 H Alkaline Phosphatase Total Protein Albumin 09/10/18 09/10/18 09/11/18 16:16 17:48 00:56 WBC RBC Hgb Hct MCV MCHC RDW Lymph % (Auto) Lymph # Seg Neutrophils % Seg Neuts % (Manual) Lymphocytes % (Manual) Nucleated RBC % Seg Neutrophils # Seg Neutrophils # Man Lymphocytes # (Manual) PT INR APTT Potassium Chloride BUN Creatinine Glucose POC Glucose 330 H 346 H 150 H Alkaline Phosphatase Total Protein Albumin 09/11/18 09/11/18 09/11/18 04:23 04:23 05:12 WBC 11.7 H RBC Hgb Hct MCV 108 H MCHC 29 L RDW 25.7 H Lymph % (Auto) Lymph # Seg Neutrophils % Seg Neuts % (Manual) 96.0 H Lymphocytes % (Manual) 2.0 L Nucleated RBC % 1.0 H Seg Neutrophils # Seg Neutrophils # Man 11.2 H Lymphocytes # (Manual) 0.2 L PT INR APTT Potassium 5.5 H D Chloride 107.8 H BUN 43 H Creatinine 0.6 L Glucose 162 H POC Glucose 252 H Alkaline Phosphatase Total Protein Albumin 09/11/18 09/11/18 07:37 09:22 WBC RBC Hgb Hct MCV MCHC RDW Lymph % (Auto) Lymph # Seg Neutrophils % Seg Neuts % (Manual) Lymphocytes % (Manual) Nucleated RBC % Seg Neutrophils # Seg Neutrophils # Man Lymphocytes # (Manual) PT 28.0 H INR 2.68 H APTT Potassium Chloride BUN Creatinine Glucose POC Glucose 202 H Alkaline Phosphatase Total Protein Albumin Allied health notes reviewed: nursing
[2018-09-11 16:21] VITALS: BP 139/85
[2018-09-11] MEDS ORDERED: COUMADIN PO SCH (17:00)
== END 2018-09-11 18:49 | DRG 915 ==
LOC: ED 12:40 → IMCU 15:53 → CC1 22:00 → 4A 09-09 20:51
PROVIDERS: ADMIT Internal Medicine; ATTEND Internal Medicine
DX: T78.3XXA Angioneurotic edema, initial encounter (principal); E43 Unspecified severe protein-calorie malnutrition; I48.91 Unspecified atrial fibrillation; E11.9 Type 2 diabetes mellitus without complications; M19.90 Unspecified osteoarthritis, unspecified site; R13.12 Dysphagia, oropharyngeal phase; Z85.819 Personal history of malignant neoplasm of unspecified site of lip, oral cavity, and pharynx; Z88.0 Allergy status to penicillin; Z88.2 Allergy status to sulfonamides; Z93.1 Gastrostomy status
CPT/HCPCS: 36415; 70360; 80048; 80053; 82962; 85007; 85025; 85610; 85730; 93005; 93010; 94760; 96372; 96374; 96375; G0378; A9270-GY; J1200; J1815; J2920; J2930

== ENCOUNTER 2018-09-23 09:26 | Emergency (ER) | payer MEDICARE ==
[2018-09-23] MEDS ORDERED: CARDIZEM IV ONE (09:34)
[2018-09-23] MEDS ORDERED: NITRO-BID 2% TP ONE (09:35)
[2018-09-23] MEDS ORDERED: CORDARONE 150 MG in D5W 100 ML IV ONE (09:36)
[2018-09-23] MEDS ORDERED: APRESOLINE IV ONE (09:38)
[2018-09-23] MEDS ORDERED: ATROPINE 0.1% (CARDIAC) ONE (09:45)
[2018-09-23] MEDS ORDERED: ADRENALIN ONE (09:45)
[2018-09-23 10:24] VITALS: BP 201/95
--- NOTE | 2018-09-23 12:34 | Emergency Department Report ---
ED Shortness of Breath HPI - General Stated Complaint: AMS Time Seen by Provider: 09/23/18 09:32 Source: EMS Mode of arrival: Stretcher Limitations: Altered Mental Status - History of Present Illness Initial Comments: HPI limited by patient distress. EMS reports called to NH with complaints of AMS. Reports patient with resp distress and uses supplemental O2 at home. Reports hx of coumadin use, and CHF MD Complaint: shortness of breath - Related Data Home Medications Medication Instructions Recorded Confirmed Last Taken AtorvaSTATin [Lipitor] 40 mg PO QHS 09/07/18 09/07/18 Unknown Digoxin [Lanoxin] 0.125 mg PO DAILY 09/07/18 09/07/18 Unknown Furosemide [Lasix TAB] 40 mg PO QDAY 09/07/18 09/07/18 Unknown Insulin Aspart [NovoLOG 100 0 unit SQ AC 09/07/18 09/07/18 Unknown UNITS/ML VIAL] Insulin Glargine,Hum.rec.anlog 10 unit SQ QHS 09/07/18 09/07/18 Unknown [Basaglar Kwikpen U-100] Metoprolol [Lopressor TAB] 25 mg PO Q6H 09/07/18 09/07/18 Unknown Sennosides/Docusate Sodium [Senna 1 each PO DAILY 09/07/18 09/07/18 Unknown Plus Tablet] Warfarin [Coumadin] 5 mg PO QDAY 09/07/18 09/07/18 Unknown Previous Rx's Medication Instructions Recorded Last Taken Type Prednisone [predniSONE 10 mg 10 mg PO .TAPER #1 tab.ds.pk 09/11/18 Unknown Rx (6-Day Pack, 21 Tabs)] diphenhydrAMINE [Benadryl CAP] 25 mg PO Q8HR PRN #15 capsule 09/11/18 Unknown Rx Allergies Allergy/AdvReac Type Severity Reaction Status Date / Time olmesartan [From Benicar] Allergy Unknown Verified 09/07/18 14:09 Penicillins Allergy Unknown Verified 09/07/18 12:53 Sulfa (Sulfonamide Allergy Vomiting Verified 09/07/18 12:53 Antibiotics) ED Review of Systems ROS: Stated complaint: AMS Other details as noted in HPI Comment: Unobtainable due to pts medical conditions ED Past Medical Hx - Past Medical History Hx Hypertension: Yes Hx Heart Attack/AMI: Yes Hx Congestive Heart Failure: No Hx Diabetes: Yes Hx Deep Vein Thrombosis: No Hx Pulmonary Embolism: No Hx Liver Disease: No Hx Renal Disease: No Hx Arthritis: Yes Hx Headaches / Migraines: No Hx Seizures: No Hx Kidney Stones: No Hx Asthma: No Hx COPD: No Hx Tuberculosis: No Hx Dementia: No Hx HIV: No Additional medical history: Pharyngeal CA, A. fib, hyperlipidemia, sciatica, hypercholesterolemia - Surgical History Hx Coronary Stent: No Hx Open Heart Surgery: No Hx Pacemaker: No Hx Internal Defibrillator: No Hx Cholecystectomy: No Hx Appendectomy: No Hx Breast Surgery: No Additional Surgical History: Peg tube-Strictly NPO - Social History Smoking Status: Unknown if ever smoked - Medications Home Medications: Home Medications Medication Instructions Recorded Confirmed Last Taken Type AtorvaSTATin [Lipitor] 40 mg PO QHS 09/07/18 09/07/18 Unknown History Digoxin [Lanoxin] 0.125 mg PO DAILY 09/07/18 09/07/18 Unknown History Furosemide [Lasix TAB] 40 mg PO QDAY 09/07/18 09/07/18 Unknown History Insulin Aspart [NovoLOG 100 0 unit SQ AC 09/07/18 09/07/18 Unknown History UNITS/ML VIAL] Insulin Glargine,Hum.rec.anlog 10 unit SQ QHS 09/07/18 09/07/18 Unknown History [Basaglar Kwikpen U-100] Metoprolol [Lopressor TAB] 25 mg PO Q6H 09/07/18 09/07/18 Unknown History Sennosides/Docusate Sodium [Senna 1 each PO DAILY 09/07/18 09/07/18 Unknown History Plus Tablet] Warfarin [Coumadin] 5 mg PO QDAY 09/07/18 09/07/18 Unknown History Prednisone [predniSONE 10 mg 10 mg PO .TAPER #1 tab.ds.pk 09/11/18 Unknown Rx (6-Day Pack, 21 Tabs)] diphenhydrAMINE [Benadryl CAP] 25 mg PO Q8HR PRN #15 capsule 09/11/18 Unknown Rx ED Physical Exam - General Limitations: Altered Mental Status - Other Other exam information: GENERAL: Patient in severe acute distress HEAD: Normocephalic, atraumatic HEART: Tachycardia irregular irregular, no murmur, S1-S2 are auscultated, pulses are symmetric LUNGS: Respiratory distress retractions, labored breathing. Bilateral ronchi / rales ABDOMEN: Normal bowel sounds, no tenderness, no rebound, no guarding, no masses, no CVA tenderness MUSCULOSKELETAL: Normal joint range of motion, no redness, no swelling, no tenderness NEUROLOGIC: no focal deficit, GCS 11 SKIN: Skin is warm and dry, no wounds, no rashes ED Course Vital Signs 09/23/18 09/23/18 10:19 11:02 Temperature 99.2 F Pulse Rate 133 H 133 H Respiratory 12 Rate Blood Pressure 201/95 201/95 ED Medical Decision Making - Medical Decision Making Patient condition deteriorated in the ER. Patient HR and BP dropped prior to administration of medications for her HTN emergency and A. Fib rvr. Patient deteriorated to cardiac arrest. Resuscitation per ACLS protocol. See nursing run sheet. Patient with downtime total in the ER approximately 22 minutes with no ROSC. Time of 1014 Critical Care Time: Yes Critical care time in (mins) excluding proc time.: 35 Critical care attestation.: If time is entered above; I have spent that time in minutes in the direct care of this critically ill patient, excluding procedure time. ED Disposition Clinical Impression: Cardiac arrest, Atrial fibrillation with RVR, Hypertensive emergency, Acute respiratory failure with hypoxia Disposition: DC-20 Is pt being admited?: No Condition: Stable Instructions: Hypertension (ED) Referrals: KASSANDRA BURTON [Other] - 3-5 Days
--- NOTE | 2018-09-23 16:51 | Emergency Department Report ---
HPI - General Time Seen by Provider: 09/23/18 09:32 ED Past Medical Hx - Past Medical History Hx Hypertension: Yes Hx Heart Attack/AMI: Yes Hx Congestive Heart Failure: No Hx Diabetes: Yes Hx Deep Vein Thrombosis: No Hx Pulmonary Embolism: No Hx Liver Disease: No Hx Renal Disease: No Hx Arthritis: Yes Hx Headaches / Migraines: No Hx Seizures: No Hx Kidney Stones: No Hx Asthma: No Hx COPD: No Hx Tuberculosis: No Hx Dementia: No Hx HIV: No Additional medical history: Pharyngeal CA, A. fib, hyperlipidemia, sciatica, hypercholesterolemia - Surgical History Hx Coronary Stent: No Hx Open Heart Surgery: No Hx Pacemaker: No Hx Internal Defibrillator: No Hx Cholecystectomy: No Hx Appendectomy: No Hx Breast Surgery: No Additional Surgical History: Peg tube-Strictly NPO - Social History Smoking Status: Unknown if ever smoked - Medications Home Medications: Home Medications Medication Instructions Recorded Confirmed Last Taken Type AtorvaSTATin [Lipitor] 40 mg PO QHS 09/07/18 09/07/18 Unknown History Digoxin [Lanoxin] 0.125 mg PO DAILY 09/07/18 09/07/18 Unknown History Furosemide [Lasix TAB] 40 mg PO QDAY 09/07/18 09/07/18 Unknown History Insulin Aspart [NovoLOG 100 0 unit SQ AC 09/07/18 09/07/18 Unknown History UNITS/ML VIAL] Insulin Glargine,Hum.rec.anlog 10 unit SQ QHS 09/07/18 09/07/18 Unknown History [Basaglar Kwikpen U-100] Metoprolol [Lopressor TAB] 25 mg PO Q6H 09/07/18 09/07/18 Unknown History Sennosides/Docusate Sodium [Senna 1 each PO DAILY 09/07/18 09/07/18 Unknown History Plus Tablet] Warfarin [Coumadin] 5 mg PO QDAY 09/07/18 09/07/18 Unknown History Prednisone [predniSONE 10 mg 10 mg PO .TAPER #1 tab.ds.pk 09/11/18 Unknown Rx (6-Day Pack, 21 Tabs)] diphenhydrAMINE [Benadryl CAP] 25 mg PO Q8HR PRN #15 capsule 09/11/18 Unknown Rx ED Review of Systems ROS: Stated complaint: AMS Other details as noted in HPI Physical Exam - Physical Exam Vital Signs: Vital Signs 09/23/18 09/23/18 10:19 11:02 Temperature 99.2 F Pulse Rate 133 H 133 H Respiratory 12 Rate Blood Pressure 201/95 201/95 ED Course Vital Signs 09/23/18 09/23/18 10:19 11:02 Temperature 99.2 F Pulse Rate 133 H 133 H Respiratory 12 Rate Blood Pressure 201/95 201/95 - Intubation Time Out Performed: Yes Sedative: none Laryngoscope: Carlos Size: 4 ET Tube Size: 7.5 Tube Secured Depth (cm): 23 Tube Secured Location: lips Tube Placement Confirmation: visualized tube passing t, equal breath sounds bilat, no breath sounds over epi, confirmation by capnometr Patient Tolerated Procedure: well, no complications Intubation Complications: none - IO Right Tibia Consent Obtained: emergent situation Time Out Performed: Yes IO Instrument Used to Penetrate the Cortex: standard IO needle Patient Tolerated Procedure: well, no complications Complications: none Critical care attestation.: If time is entered above; I have spent that time in minutes in the direct care of this critically ill patient, excluding procedure time. ED Disposition Clinical Impression: Cardiac arrest Disposition: DC-20 Is pt being admited?: No Condition: Stable Instructions: Hypertension (ED) Referrals: KASSANDRA BURTON [Other] - 3-5 Days
== END 2018-09-23 14:09 ==
LOC: ED 09:26
DX: I46.9 Cardiac arrest, cause unspecified (principal); I11.0 Hypertensive heart disease with heart failure; I50.9 Heart failure, unspecified; E11.9 Type 2 diabetes mellitus without complications; M19.90 Unspecified osteoarthritis, unspecified site; E78.00 Pure hypercholesterolemia, unspecified; I48.91 Unspecified atrial fibrillation; Z79.899 Other long term (current) drug therapy; Z88.0 Allergy status to penicillin; Z88.2 Allergy status to sulfonamides; Z88.6 Allergy status to analgesic agent
CPT/HCPCS: 31500; 36680; 82962; 92950; 93005; 93010; 99291; J0171; J0282; J0360; J0461